=== PATIENT | male | born 1990 | race Caucasian/White ===

== ENCOUNTER 2020-08-27 18:24 | Emergency (ER) | payer BC ==
[~2020-08-27] VITALS: Ht 188 cm; Wt 88.5 kg
[2020-08-27] MEDS ORDERED: PAXIL10 MG PO (18:36)
[2020-08-27] MEDS ORDERED: WELLBUTRIN SR100 MG PO (18:37)
[2020-08-27] MEDS ORDERED: OMEPRAZOLE10 MG PO (18:38)
--- NOTE | 2020-08-27 20:33 | EKG ---
[facility] [address] [place], [place] [address] Signed Sinus bradycardia with sinus arrhythmia Otherwise normal ECG No previous ECGs available Confirmed by CHRIST DUKE MD [id number] on 08/27/2020 8:33:23 PM Electronically Signed By: CHRIST DUKE MD 08/27/202032 PATIENT NAME: SHAINA SEXTON Electrocardiogram DATE OF : 89 PHYSICIAN: CHRIST DUKE MD REPORT #: [id number] REPORT IS CONFIDENTIAL AND NOT TO BE RELEASED WITHOUT AUTHORIZATION
== END 2020-08-27 21:11 | disposition home or self-care (01) ==
LOC: ED 18:24
DX: T88.1XXA Other complications following immunization, not elsewhere classified, initial encounter (principal); R10.13 Epigastric pain; R11.2 Nausea with vomiting, unspecified; J45.909 Unspecified asthma, uncomplicated; Z79.899 Other long term (current) drug therapy
CPT/HCPCS: 71045; 80053; 83735; 84484; 85025; 93005; 93010; 96374; 96375; 99284-25; C9113; J2405; J7030

== ENCOUNTER 2020-10-22 21:46 | Emergency (ER) | payer OTHER ==
[~2020-10-22] VITALS: Ht 188 cm; Wt 83.9 kg
[~2020-10-22 21:46] MED LIST: OMEPRAZOLE10 MG PO; PAXIL10 MG PO; WELLBUTRIN SR100 MG PO
[2020-10-23] MEDS ORDERED: REGLAN10 MG PO (00:21)
== END 2020-10-23 00:47 | disposition home or self-care (01) ==
LOC: ED 21:46
DX: K29.70 Gastritis, unspecified, without bleeding (principal); J45.909 Unspecified asthma, uncomplicated; Z79.899 Other long term (current) drug therapy
CPT/HCPCS: 80053; 83690; 85025; 96374; 99284-25; J2405; J7030

== ENCOUNTER 2024-12-05 10:16 | Emergency (ER) | payer SELFPAY ==
[~2024-12-05] VITALS: Ht 188 cm; Wt 70.4 kg
[~2024-12-05 10:16] MED LIST changes: +REGLAN10 MG PO
[2024-12-05] MEDS ORDERED: ondansetron HCL 4 MG/2 ML VIAL IV ONE (11:45)
[2024-12-05] MEDS ORDERED: SODIUM CHLORIDE 0.9% 1,000 ML IV ONE (11:45)
[2024-12-05 11:52] LABS: BASOPHILS 0.2 % (0.2-1.2); EOSINOPHILS 0.1 % (0.8-7.0); HEMATOCRIT 42.3 % (40.1-51.0); HEMOGLOBIN 14.7 g/dL (13.7-17.5); LYMPHOCYTES 19.8 % (21.8-53.1); MCH 30.4 PG (25.7-32.2); MCHC 34.8 g/dL (32.3-36.5); MCV 87.6 fL (79.0-92.2); MONOCYTES 9.5 % (5.3-12.2); NEUTROPHILS 70.2 % (34.0-67.9); PLATELET COUNT 206 K/uL (163-337); RBC 4.83 M/uL (4.63-6.08)
[2024-12-05 12:07] LABS: ALBUMIN 4.3 g/dL (3.4-5.0); ALBUMIN/GLOBULIN RATIO 1.08 (1.1-2.4); ANION GAP 14.6 (7-21); BILIRUBIN, TOTAL 1.6 mg/dL (0.2-1.0); BUN/CREATININE RATIO 20.49 (6.0-28.6); CALCIUM 9.2 mg/dL (8.5-10.1); CREATININE, SERUM 1.22 mg/dL (0.70-1.30); POTASSIUM 3.6 mmol/L (3.5-5.1); PROTEIN, TOTAL 8.3 g/dL (6.4-8.2)
[2024-12-05] MEDS ORDERED: METOCLOPRAMIDE HCL 10 MG/2 ML SDV IV ONE (12:30)
[2024-12-05] MEDS ORDERED: diphenhydrAMINE HCL 50 MG/ML VIAL IV ONE (12:30)
[2024-12-05 12:48] LABS: BILIRUBIN, URINE POSITIVE (negative); BLOOD/HGB, URINE NEGATIVE (Negative); KETONE, URINE >=80 (Negative); LEUK ESTERASE, URINE NEGATIVE (negative); NITRITE, URINE NEGATIVE (negative)
[2024-12-05 12:52] LABS: EPITHELIAL CELLS, URINE SQUAMOUS 1+ /lpf (0-1+)
[2024-12-05 12:53] LABS: BACTERIA, URINE NONE SEEN /hpf (negative); CASTS, URINE NONE SEEN \\lpf; COLLECTION TYPE, URINE CLEAN CATCH; CRYSTALS, URINE NONE SEEN (0-1+); RED BLOOD CELLS, URINE 0-1 /hpf (0-5); REFLEX CULTURE, URINE No (No)
[2024-12-05] MEDS ORDERED: REGLAN10 MG PO (13:54)
[2024-12-05] MEDS ORDERED: PROMETHAZINE HC25 M1 PO (14:12)
[2024-12-05 14:15] VITALS: BP 115/66
== END 2024-12-05 14:20 | disposition home or self-care (01) ==
LOC: ED 10:16
PROVIDERS: Emergency Medicine
DX: R11.2 Nausea with vomiting, unspecified (principal); J45.909 Unspecified asthma, uncomplicated; Z79.899 Other long term (current) drug therapy
CPT/HCPCS: 36415; 74177; 80053; 81001; 83690; 85025; 96361; 96375; 99284-25; J1200; J2405; J2765; J7030; Q9967